=== PATIENT | female | born 1980 | race Hispanic/Latino ===

== ENCOUNTER 2019-05-27 14:35 | Emergency (ER) | payer OTHER ==
--- NOTE | 2019-05-27 16:09 | RAD REPORT ---
EXAM DESCRIPTION: RAD - Chest Pa And Lat (2 Views) - 05/27/2019 4:02 pm CLINICAL HISTORY: sore throat, cough Chest pain. COMPARISON: No comparisons FINDINGS: The lungs are clear. The heart is upper limit of normal in size. No displaced fractures. IMPRESSION: No acute or concerning finding suspected.
--- NOTE | 2019-05-27 16:14 | ER ---
Nurse's Notes [facility] Name: Zeinab Kim Age: 38 yrs Sex: Female : 1980 Arrival Date: 05/27/2019 Time: 14:40 Bed 24 Private MD: Diagnosis: Bronchitis, not specified as acute or chronic Presentation: 05/27 14:55 Presenting complaint: Patient states: Sore throat, productive cough, congestion, aj1 headache, and chest pain for the past 3 days. Denies fever. Transition of care: patient was not received from another setting of care. Onset of symptoms was May 2019. Risk Assessment: Do you want to hurt yourself or someone else? Patient reports no desire to harm self or others. Initial Sepsis Screen: Does the patient meet any 2 criteria? No. Patient's initial sepsis screen is negative. Does the patient have a suspected source of infection? Yes: Productive cough/pneumonia. Care prior to arrival: None. 14:55 Method Of Arrival: Ambulatory aj1 14:55 Acuity: RANDY 4 aj1 Triage Assessment: 14:58 General: Appears in no apparent distress. comfortable, Behavior is calm, cooperative, aj1 appropriate for age. Pain: Complains of pain in forehead, right gnosticist and left gnosticist. EENT: Reports nasal congestion nasal discharge sore throat. 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 - Coronavirus screen:: The patient has NOT traveled to [place], [place], or [place] in the past 14 days. - Social history:: Smoking status: Patient/guardian denies using tobacco. - Ebola Screening: : Patient denies travel to an Ebola-affected area in the 21 days before illness onset. Screenin:59 Abuse screen: Denies threats or abuse. Denies injuries from another. Nutritional aj1 screening: No deficits noted. Tuberculosis screening: No symptoms or risk factors identified. Assessment: 14:59 General: Appears in no apparent distress. comfortable, Behavior is calm, cooperative, aj1 appropriate for age. Pain: Complains of pain in left gnosticist and right gnosticist and forehead. Neuro: Level of Consciousness is awake, alert, obeys commands, Oriented to person, place, time, situation. Cardiovascular: Patient's skin is warm and dry. Respiratory: Reports cough that is productive, Airway is patent Respiratory effort is even, unlabored, Respiratory pattern is regular, symmetrical, Breath sounds are clear bilaterally. GI: No signs and/or symptoms were reported involving the gastrointestinal system. : No signs and/or symptoms were reported regarding the genitourinary system. EENT: Throat is reddened bilaterally Reports nasal congestion nasal discharge sore throat. Derm: No signs and/or symptoms reported regarding the dermatologic system. Skin is pink, warm \T\ dry. normal. Musculoskeletal: No signs and/or symptoms reported regarding the musculoskeletal system. Circulation, motion, and sensation intact. 17:09 Reassessment: Patient appears in no apparent distress at this time. Patient and/or sg family updated on plan of care and expected duration. Pain level reassessed. Patient is alert, oriented x 3, equal unlabored respirations, skin warm/dry/pink. Patient denies pain at this time. Patient states feeling better. Vital Signs: 14:58 BP 121 / 92; Pulse 91; Resp 18; Temp 98.6(O); Pulse Ox 99% on R/A; aj1 17:00 BP 122 / 80; Pulse 87; Resp 16; Temp 98.6; Pulse Ox 100% on R/A; sg ED Course: 14:40 Patient arrived in ED. es 14:55 Lanie Cox, SANDRA is Primary Nurse. aj1 14:55 [facility] Jurado [facility]C [facility] kb 14:55 Rolando Carter MD is Attending Physician. kb 14:56 Triage completed. aj1 14:58 Arm band placed on Patient placed in an exam room. aj1 14:59 Patient has correct armband on for positive identification. aj1 14:59 No provider procedures requiring assistance completed. aj1 15:17 Flu and/or RSV swab sent to lab. Strep swab sent to lab. jp3 16:02 Chest Pa And Lat (2 Views) In Process Unspecified. EDMS 17:05 Patient did not have IV access during this emergency room visit. sg Administered Medications: 16:30 Drug: AtroVENT Aerosol 0.5 mg Route: Inhalation; sg 16:50 Follow up: Response: No adverse reaction sg 16:31 Drug: Albuterol 2.5 mg Route: Inhalation; sg 16:50 Follow up: Response: No adverse reaction; Marked relief of symptoms sg Outcome: 16:14 Discharge ordered by . kb 17:05 Discharged to home ambulatory. sg 17:05 Condition: good 17:05 Discharge instructions given to patient, family, Instructed on discharge instructions, follow up and referral plans. medication usage, safety practices, Demonstrated understanding of instructions, follow-up care, medications, Prescriptions given X 1. 17:08 Patient left the ED. sg Signatures: Dispatcher [employer] Fadia Cotton, FILM VAULT SUPERVISOR-C FILM VAULT SUPERVISOR-Lanie Holland RN RN aj1 Severo Santana RN RN Shannon Benitez Jacob jp3
--- NOTE | 2019-05-27 16:14 | EDPHYS ---
Physician Documentation [facility] Name: Zeinab Kim Age: 38 yrs Sex: Female : 1980 Arrival Date: 05/27/2019 Time: 14:40 Bed 24 Private MD: ED Physician Rolando Crater HPI: 05/27 16:13 This 38 yrs old Female presents to ER via Ambulatory with complaints of Sore kb Throat, Cough, Chest Congestion. 16:13 The patient presents with sore throat. The patient describes throat pain as constant. kb Onset: The symptoms/episode began/occurred 3 day(s) ago. Severity of symptoms: At their worst the symptoms were moderate, in the emergency department the symptoms are unchanged. Modifying factors: The symptoms are alleviated by nothing, the symptoms are aggravated by swallowing, Patient's oral intake status: good Denies contact with similarly ill indivduals. Associated signs and symptoms: Pertinent positives: cough, fever, flu-like symptoms, Sore throat. The patient has not experienced similar symptoms in the past. The patient has not recently seen a physician. 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 - Coronavirus screen:: The patient has NOT traveled to [place], [place], or [place] in the past 14 days. - Social history:: Smoking status: Patient/guardian denies using tobacco. - Ebola Screening: : Patient denies travel to an Ebola-affected area in the 21 days before illness onset. ROS: 16:12 Cardiovascular: Negative for chest pain, palpitations, and edema, Abdomen/GI: Negative kb for abdominal pain, nausea, vomiting, diarrhea, and constipation, Back: Negative for injury and pain, MS/Extremity: Negative for injury and deformity, Skin: Negative for injury, rash, and discoloration, Neuro: Negative for headache, weakness, numbness, tingling, and seizure. 16:12 Constitutional: Positive for body aches, chills, fatigue, fever, malaise. 16:12 ENT: Positive for sore throat. 16:12 Respiratory: Positive for cough, Negative for dyspnea on exertion, hemoptysis, orthopnea, pleurisy, shortness of breath, sputum production, wheezing. Exam: 16:13 Constitutional: This is a well developed, well nourished patient who is awake, alert, kb and in no acute distress. Head/Face: Normocephalic, atraumatic. ENT: Nares patent. No nasal discharge, no septal abnormalities noted. Tympanic membranes are normal and external auditory canals are clear. Oropharynx with no redness, swelling, or masses, exudates, or evidence of obstruction, uvula midline. Mucous membranes moist. Neck: Trachea midline, no thyromegaly or masses palpated, and no cervical lymphadenopathy. Supple, full range of motion without nuchal rigidity, or vertebral point tenderness. No Meningismus. Chest/axilla: Normal chest wall appearance and motion. Nontender with no deformity. No lesions are appreciated. Cardiovascular: Regular rate and rhythm with a normal S1 and S2. No gallops, murmurs, or rubs. Normal PMI, no JVD. No pulse deficits. Respiratory: Lungs have equal breath sounds bilaterally, clear to auscultation and percussion. No rales, rhonchi or wheezes noted. No increased work of breathing, no retractions or nasal flaring. Abdomen/GI: Soft, non-tender, with normal bowel sounds. No distension or tympany. No guarding or rebound. No evidence of tenderness throughout. Skin: Warm, dry with normal turgor. Normal color with no rashes, no lesions, and no evidence of cellulitis. MS/ Extremity: Pulses equal, no cyanosis. Neurovascular intact. Full, normal range of motion. Neuro: Awake and alert, GCS 15, oriented to person, place, time, and situation. Cranial nerves II-XII grossly intact. Motor strength 5/5 in all extremities. Sensory grossly intact. Cerebellar exam normal. Normal gait. Vital Signs: 14:58 BP 121 / 92; Pulse 91; Resp 18; Temp 98.6(O); Pulse Ox 99% on R/A; aj1 17:00 BP 122 / 80; Pulse 87; Resp 16; Temp 98.6; Pulse Ox 100% on R/A; sg MDM: 14:56 Patient medically screened. kb 16:12 Data reviewed: vital signs, nurses notes. Data interpreted: Pulse oximetry: on room air kb is 99 %. Interpretation: normal. Counseling: I had a detailed discussion with the patient and/or guardian regarding: the historical points, exam findings, and any diagnostic results supporting the discharge/admit diagnosis, lab results, radiology results, the need for outpatient follow up, a family practitioner, to return to the emergency department if symptoms worsen or persist or if there are any questions or concerns that arise at home. 05/27 15:22 Order name: Influenza Screen (A ; Complete Time: 15:58 EDMS 05/27 15:22 Order name: Group A Streptococcus Rapid Sc EDDE 05/27 15:49 Order name: Throat Culture EDDE 05/27 15:24 Order name: Chest Pa And Lat (2 Views); Complete Time: 16:10 EDMS Administered Medications: 16:30 Drug: AtroVENT Aerosol 0.5 mg Route: Inhalation; 16:50 Follow up: Response: No adverse reaction sg 16:31 Drug: Albuterol 2.5 mg Route: Inhalation; sg 16:50 Follow up: Response: No adverse reaction; Marked relief of symptoms sg Disposition: 05/27/19 16:14 Discharged to Home. Impression: Bronchitis, not specified as acute or chronic. - Condition is Stable. - Discharge Instructions: Acute Bronchitis, [id number], Viral Respiratory Infection, [id number]. - Prescriptions for Albuterol Sulfate 90 mcg/actuation - inhale 1-2 puff by INHALATION route every 4-6 hours; 1 Inhaler. - Medication Reconciliation Form, Thank You Letter, Antibiotic Education, Prescription Opioid Use, Work release form form. - Follow up: Emergency Department; When: As needed; Reason: Worsening of condition. Follow up: Private Physician; When: 2 - 3 days; Reason: Recheck today's complaints, Continuance of care, Re-evaluation by your physician. Addendum: 05/28/2019 21:16 Co-signature as Attending Physician, Rolando Carter MD I agree with the assessment and k dr plan of care. Signatures: Dispatcher [employer] EDDE Fadia Jurado, DIRECTOR INTERNAL COMMUNICATIONS-C RIAZ-Lanie Holland RN RN aj1 Severo Santana RN RN sg Rittger, Kevin, MD MD kdr Corrections: (The following items were deleted from the chart) 05/27 16:15 16:02 Chest Pa And Lat (2 Views)+RAD.[id number].[email or web address] ordered. EDDE EDMS 17:08 16:14 05/27/2019 16:14 Discharged to Home. Impression: Bronchitis, not specified as sg acute or chronic. Condition is Stable. Forms are Medication Reconciliation Form, Thank You Letter, Antibiotic Education, Prescription Opioid Use. Follow up: Emergency Department; When: As needed; Reason: Worsening of condition. Follow up: Private Physician; When: 2 - 3 days; Reason: Recheck today's complaints, Continuance of care, Re-evaluation by your physician. kb
[2019-05-27] MEDS ORDERED: ALBUTEROL 2.5 MG/3 ML NEB SOL ONE (16:29)
[2019-05-27] MEDS ORDERED: IPRATROPIUM BROM 0.5MG/2.5ML ONE (16:30)
[2019-05-27 17:14] VITALS: BP 121/92; TEMP 98.6; O2SAT 99
== END 2019-05-27 17:08 | disposition home or self-care (01) ==
LOC: ER 14:35
DX: J40 Bronchitis, not specified as acute or chronic (principal)
CPT/HCPCS: 71046; 87070; 87081; 87804; 99284

== ENCOUNTER 2020-05-24 13:01 | Emergency (ER) | payer BC, SELFPAY ==
--- OUTSIDE RECORDS SUMMARY | 2020-05-24 13:10 | XMS REPORT | Continuity of Care Document ---
:1980 Author Organization [facility] t Address [address] [place] [address] Care Team Providers Name Role Phone Lab, Fam Pob I Attending Clinician Unavailable Problems This patient has no known problems. Allergies, Adverse Reactions, Alerts This patient has no known allergies or adverse reactions. Medications This patient has no known medications. Procedures This patient has no known procedures. Encounters Start End Encounter Admission Attending Care Care Encounter Source Date/Time Date/Time Type Type Clinicians Facility Department ID 2019-11-22 2019-11-22 Laboratory Lab, [facility] [id number] 16:55:21 17:15:[address] [facility] [id number] [place] [id number] [facility] [phone] [address] Results This patient has no known results.
[2020-05-24 13:54] LABS: Urine Blood NEGATIVE (NEG); Urine Glucose NEGATIVE (NEG); Urine Protein NEGATIVE (NEG); Urine pH 6.5 (5.0-7.0)
[2020-05-24 14:36] LABS: Absolute Lymphocytes (CBC) 1.6 K/uL (0.7-4.9); Basophils % 1.3 % (0-1.3); Hematocrit 37.3 % (36.0-45.0); Lymphocytes % 25.8 % (15.3-44.8); MPV 8.5 fL (7.6-11.3); RBC Red Blood Cell Count 4.29 M/uL (3.86-4.86)
[2020-05-24 14:49] LABS: BUN Blood Urea Nitrogen 21 mg/dL (7-18); Bicarbonate 27 mmol/L (21-32); Glucose Level 99 mg/dL (74-106); Magnesium 2.5 mg/dL (1.8-2.4); Potassium 4.1 mmol/L (3.5-5.1); Sodium Level 138 mmol/L (136-145); Troponin (Emerg Dept Use Only) < 0.02 ng/mL (0.0-0.045)
--- NOTE | 2020-05-24 15:03 | EDPHYS ---
Physician Documentation [facility] Name: Zeinab Kim Age: 39 yrs Sex: Female : 1980 Arrival Date: 05/24/2020 Time: 13:05 Bed 26 Private MD: ED Physician Jose Aquino HPI: 05/24 14:00 This 39 yrs old Female presents to ER via Ambulatory with complaints of cp General Weakness, Nausea. 14:00 general weakness, fatigue and nausea. Onset: The symptoms/episode began/occurred 1 cp week(s) ago. Severity of symptoms: in the emergency department the symptoms are unchanged despite home interventions. 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 - Social history:: Smoking status: Patient reports the use of cigarette tobacco products. ROS: 14:05 Constitutional: Positive for fatigue, Negative for body aches, fever, poor PO intake. cp 14:05 Eyes: Negative for injury, pain, redness, and discharge. cp 14:05 ENT: Negative for drainage from ear(s), ear pain, sore throat, difficulty swallowing, difficulty handling secretions. 14:05 Cardiovascular: Negative for chest pain, edema, palpitations. 14:05 Respiratory: Negative for cough, shortness of breath, wheezing. 14:05 Abdomen/GI: Positive for nausea, Negative for abdominal pain, vomiting, diarrhea, constipation, black/tarry stool, rectal bleeding. 14:05 : Negative for urinary symptoms, vaginal bleeding, vaginal discharge. 14:05 Skin: Negative for cellulitis, rash. 14:05 Neuro: Positive for weakness, Negative for altered mental status, headache, speech changes, syncope. 14:05 All other systems are negative. Exam: 14:10 Constitutional: The patient appears in no acute distress, alert, awake, cp non-diaphoretic, non-toxic, well developed, well nourished. 14:10 Head/Face: Normocephalic, atraumatic. cp 14:10 Eyes: Periorbital structures: appear normal, Conjunctiva: normal, no exudate, no injection, Sclera: no appreciated abnormality, Lids and lashes: appear normal, bilaterally. 14:10 ENT: External ear(s): are unremarkable, Nose: is normal, Mouth: Lips: moist, Oral mucosa: pink and intact, moist, Posterior pharynx: Airway: no evidence of obstruction, patent. 14:10 Neck: ROM/movement: is normal, is supple, without pain, no range of motions limitations. 14:10 Chest/axilla: Inspection: normal, Palpation: is normal, no crepitus, no tenderness. 14:10 Cardiovascular: Rate: normal, Rhythm: regular, Edema: is not appreciated, JVD: is not appreciated. 14:10 Respiratory: the patient does not display signs of respiratory distress, Respirations: normal, no use of accessory muscles, no retractions, labored breathing, is not present, Breath sounds: are clear throughout, no decreased breath sounds, no stridor, no wheezing. 14:10 Abdomen/GI: Inspection: abdomen appears normal, Palpation: abdomen is soft and non-tender, in all quadrants, rebound tenderness, is not appreciated, voluntary guarding, is not appreciated, involuntary guarding, is not appreciated. 14:10 Skin: no rash present. 14:10 Neuro: Orientation: to person, place \T\ time. Mentation: is normal, Cerebellar function: is grossly normal, Motor: moves all fours, strength is normal, Sensation: is normal. 14:35 ECG was reviewed by the Attending Physician. cp Vital Signs: 13:19 BP 117 / 87; Pulse 65; Resp 18 S; Temp 97.2(TE); Pulse Ox 99% on R/A; Weight 81.65 kg ca1 (R); Height 5 ft. 4 in. (162.56 cm) (R); Pain 0/10; 14:48 BP 100 / 74 RA Sitting (auto/reg); Pulse 67; Resp 15; Pulse Ox 98% on R/A; dh4 14:48 BP 106 / 76 RA Standing (auto/lg); Pulse 69; Resp 14; Pulse Ox 98% on R/A; dh4 14:48 BP 94 / 65 RA Supine (auto/reg); Pulse 58; Resp 19; Pulse Ox 98% on R/A; dh4 13:19 Body Mass Index 30.90 (81.65 kg, 162.56 cm) ca1 MDM: 13:46 Patient medically screened. cp 14:00 Differential Diagnosis anemia, , cardiac arrythmia, electrolyte abnormality. cp 15:00 Data reviewed: vital signs, nurses notes, lab test result(s), EKG. cp 15:00 Counseling: I had a detailed discussion with the patient and/or guardian regarding: the cp historical points, exam findings, and any diagnostic results supporting the discharge/admit diagnosis, lab results, the need for outpatient follow up, a family practitioner, to return to the emergency department if symptoms worsen or persist or if there are any questions or concerns that arise at home. ED course: VSS. Will discharge to home for continued monitoring. 05/24 13:35 Order name: Urine Dipstick--Ancillary (enter results) eb 05/24 13:35 Order name: Urine --Ancillary (enter results) 05/24 13:52 Order name: Basic Metabolic Panel 05/24 13:52 Order name: CBC with Diff 05/24 13:52 Order name: Magnesium 05/24 13:52 Order name: Troponin (emerg Dept Use Only) 05/24 13:35 Order name: Urine Dipstick-Ancillary (obtain specimen); Complete Time: 13:36 ca1 05/24 13:52 Order name: EKG; Complete Time: 13:53 cp 05/24 13:55 Order name: Urine --Ancillary; Complete Time: 14:32 EDMS 05/24 13:55 Order name: Urine Dipstick-Ancillary; Complete Time: 14:32 EDMS 05/24 14:32 Interpretation: Normal except: UESTR TRACE. cp 05/24 14:38 Order name: CBC with Automated Diff; Complete Time: 14:53 EDMS 05/24 14:53 Interpretation: Normal except: RDW 16.2; MN% 12.7. cp 05/24 14:49 Order name: Basic Metabolic Panel; Complete Time: 14:53 EDMS 05/24 14:53 Interpretation: Normal except: CL 108; BUN 21; GFR 61; CA 10.5. cp 05/24 14:49 Order name: Troponin (Emerg Dept Use Only); Complete Time: 14:53 EDMS 05/24 14:49 Order name: Magnesium; Complete Time: 14:53 EDMS 05/24 14:53 Interpretation: Abnormal: MG 2.5. cp 05/24 13:35 Order name: Urine Test (obtain specimen); Complete Time: 13:35 ca1 05/24 13:52 Order name: Cardiac monitoring; Complete Time: 14:19 cp 05/24 13:52 Order name: EKG - Nurse/Tech; Complete Time: 14:38 cp 05/24 13:52 Order name: IV Saline Lock; Complete Time: 14:19 cp 05/24 13:52 Order name: Labs collected and sent; Complete Time: 14:19 cp 05/24 13:52 Order name: O2 Per Protocol; Complete Time: 14:19 cp 05/24 13:52 Order name: O2 Sat Monitoring; Complete Time: 14:20 cp 05/24 13:52 Order name: Orthostatics; Complete Time: 14:51 cp EC:35 Rate is 57 beats/min. Rhythm is regular. WA interval is normal. QRS interval is normal. cp QT interval is normal. Interpreted by me. Reviewed by me. Administered Medications: No medications were administered Disposition: 05/24/20 15:03 Discharged to Home. Impression: Weakness, Nausea. - Condition is Stable. - Discharge Instructions: Nausea, Adult, Weakness, Fatigue. - Prescriptions for Zofran 4 mg Oral Tablet - take 1 tablet by ORAL route every 12 hours As needed; 20 tablet. - Medication Reconciliation Form, Thank You Letter, Antibiotic Education, Prescription Opioid Use, Work release form form. - Follow up: Private Physician; When: 2 - 3 days; Reason: Recheck today's complaints. - Problem is new. - Symptoms have improved. Addendum: 05/27/2020 06:24 Co-signature as Attending Physician, Jose Aquino MD I agree with the assessment and t w4 plan of care. Signatures: Dispatcher [employer] EDMS Alejandro Estes PA PA cp Wadley, Terrence, MD MD tw4 Kriss Zamudio RN RN ca1 Corrections: (The following items were deleted from the chart) 05/24 14:53 14:53 Normal except: CL 108; BUN 21; GFR 61. cp cp 16:22 15:03 05/24/2020 15:03 Discharged to Home. Impression: Weakness; Nausea. Condition is ca1 Stable. Forms are Medication Reconciliation Form, Thank You Letter, Antibiotic Education, Prescription Opioid Use. Follow up: Private Physician; When: 2 - 3 days; Reason: Recheck today's complaints. Problem is new. Symptoms have improved. cp
--- NOTE | 2020-05-24 15:03 | ER ---
Nurse's Notes [facility] Name: Zeinab Kim Age: 39 yrs Sex: Female : 1980 Arrival Date: 05/24/2020 Time: 13:05 Bed 26 Private MD: Diagnosis: Weakness;Nausea Presentation: 05/24 13:19 Chief complaint: Patient states: Fatigue and nausea x 1 week. Denies fever. Coronavirus ca1 screen: Client denies travel out of the [place] in the last 14 days. fatigue, nausea, Client presents with at least one sign or symptom that may indicate coronavirus-19. Standard/surgical mask placed on the client. Provider contacted for isolation considerations. Ebola Screen: Patient negative for fever greater than or equal to 101.5 degrees Fahrenheit, and additional compatible Ebola Virus Disease symptoms Patient denies exposure to infectious person. Patient denies travel to an Ebola-affected area in the 21 days before illness onset. No symptoms or risks identified at this time. Initial Sepsis Screen: Does the patient meet any 2 criteria? No. Patient's initial sepsis screen is negative. Does the patient have a suspected source of infection? No. Patient's initial sepsis screen is negative. Risk Assessment: Do you want to hurt yourself or someone else? Patient reports no desire to harm self or others. Onset of symptoms was May 24, 2020. 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 - Social history:: Smoking status: Patient reports the use of cigarette tobacco products. Screenin:21 Abuse screen: Denies threats or abuse. Denies injuries from another. Nutritional ca1 screening: No deficits noted. Tuberculosis screening: No symptoms or risk factors identified. Fall Risk None identified. Assessment: 14:00 General: Appears in no apparent distress. uncomfortable, Behavior is calm, cooperative, ca1 appropriate for age, Reports fatigue for 2-3 days. Pain: Denies pain. Neuro: No deficits noted. Cardiovascular: No deficits noted. Respiratory: No deficits noted. GI: Abdomen is round non-distended, Reports nausea, Patient currently denies vomiting. : No deficits noted. EENT: No deficits noted. Derm: No deficits noted. Musculoskeletal: No signs and/or symptoms reported regarding the musculoskeletal system. Circulation, motion, and sensation intact. Capillary refill < 3 seconds, in bilateral fingers. Range of motion: intact in all extremities. 15:00 Reassessment: Patient appears in no apparent distress at this time. Patient and/or ca1 family updated on plan of care and expected duration. Pain level reassessed. Patient is alert, oriented x 3, equal unlabored respirations, skin warm/dry/pink. no c/o of pain. Reassessment: Patient appears in no apparent distress at this time. Patient and/or family updated on plan of care and expected duration. Pain level reassessed. Patient is alert, oriented x 3, equal unlabored respirations, skin warm/dry/pink. patient states she ready to go no c/o pain. Vital Signs: 13:19 BP 117 / 87; Pulse 65; Resp 18 S; Temp 97.2(TE); Pulse Ox 99% on R/A; Weight 81.65 kg ca1 (R); Height 5 ft. 4 in. (162.56 cm) (R); Pain 0/10; 14:48 BP 100 / 74 RA Sitting (auto/reg); Pulse 67; Resp 15; Pulse Ox 98% on R/A; dh4 14:48 BP 106 / 76 RA Standing (auto/lg); Pulse 69; Resp 14; Pulse Ox 98% on R/A; dh4 14:48 BP 94 / 65 RA Supine (auto/reg); Pulse 58; Resp 19; Pulse Ox 98% on R/A; dh4 13:19 Body Mass Index 30.90 (81.65 kg, 162.56 cm) ca1 ED Course: 13:05 Patient arrived in ED. am4 13:20 Triage completed. ca1 13:21 Arm band placed on right wrist. ca1 13:41 Alejandro Estes PA is PHCP. cp 13:41 Jose Aquino MD is Attending Physician. cp 13:45 Macy Salgado, SANDRA is Primary Nurse. zb 13:47 Urine --Ancillary (enter results) Sent. mh5 13:47 Urine Dipstick--Ancillary (enter results) Sent. [facility] 15:00 Inserted saline lock: 20 gauge in right antecubital area, using aseptic technique. ca1 16:21 No provider procedures requiring assistance completed. ca1 16:22 Patient has correct armband on for positive identification. prefinish operator on. Pulse ca1 ox on. NIBP on. 16:22 IV discontinued, intact, bleeding controlled, No redness/swelling at site. Pressure ca1 dressing applied. Administered Medications: No medications were administered Outcome: 15:03 Discharge ordered by . cornelio 16:21 Discharged to home ambulatory. ca1 16:21 Condition: stable 16:21 Discharge instructions given to patient, Instructed on discharge instructions, follow up and referral plans. medication usage, Demonstrated understanding of instructions, follow-up care, medications, Prescriptions given X 1. 16:22 Patient left the ED. ca1 Signatures: Alejandro Estes PA PA cp Martinez, Maria 5 Kriss Zamudio RN RN Randy Carbajal4 Macy Salgado RN RN zb Martinez, Ashley [facility]
[2020-05-24 16:26] VITALS: TEMP 97.2
[2020-05-24 16:28] VITALS: BP 94/65; O2SAT 98
== END 2020-05-24 16:22 | disposition home or self-care (01) ==
LOC: ER 13:01
DX: R11.0 Nausea (principal); Z72.0 Tobacco use
CPT/HCPCS: 36415; 80048; 81003; 81025; 83735; 84484; 85025; 93005; 99284

== ENCOUNTER 2020-09-06 16:49 | Emergency (ER) | payer SELFPAY ==
--- OUTSIDE RECORDS SUMMARY | 2020-09-06 16:52 | XMS REPORT | Continuity of Care Document ---
:1980 Author Organization [facility] t Address [address] [place] [address] Care Team Providers Name Role Phone Lizandro Bardales DO Attending Clinician Chikis Rod DO Attending Clinician Lab, [facility] Pob I Attending Clinician Unavailable Problems This patient has no known problems. Allergies, Adverse Reactions, Alerts This patient has no known allergies or adverse reactions. Medications This patient has no known medications. Procedures This patient has no known procedures. Encounters Start End Encounter Admission Attending Care Care Encounter Source Date/Time Date/Time Type Type Clinicians Facility Department ID 2020-07-18 2020-07-18 Patient Jeffy PRE[facility] [id number] 00:00:00 00:00:00 Outreach [facility] [id number] Lizandro [facility] [id number] [place] [id number] 2020-06-20 2020-06-20 Emergency Marcel PRE[facility] [id number] 14:51:00 18:34:00 Inga Henderson [id number] [place] [id number] [place] [id number] 2019-11-22 2019-11-22 Laboratory Lab, [facility] [id number] 16:55:21 17:15:21 Only Fam [facility] [id number] [place] [id number] [place] [phone] [place] [address] One Results This patient has no known results.
--- NOTE | 2020-09-06 17:28 | RAD REPORT ---
EXAM DESCRIPTION: CT - CTHCSPWOC - 09/06/2020 5:18 pm CLINICAL HISTORY: Trauma, head and neck injury. fall COMPARISON: No comparisons TECHNIQUE: Axial 5 mm thick images of the head were obtained. Axial 2 mm thick images of the cervical spine were obtained with sagittal and coronal reconstruction images generated and reviewed. All CT scans are performed using dose optimization technique as appropriate and may include automated exposure control or mA/KV adjustment according to patient size. FINDINGS: CT HEAD WITHOUT CONTRAST: No acute hemorrhage, hydrocephalus or extra-axial collection is identified.No areas of brain edema or midline shift. The paranasal sinuses and mastoids are clear.The calvarium is intact. CT CERVICAL SPINE WITHOUT CONTRAST: No fracture or subluxation.Cervical degenerative changes.No prevertebral soft tissues swelling is fatuma ntified. IMPRESSION: No acute intracranial or cervical spine findings.
--- NOTE | 2020-09-06 18:01 | RAD REPORT ---
EXAM DESCRIPTION: RAD - Shoulder Right 2 View - 09/06/2020 5:42 pm CLINICAL HISTORY: fall Trauma, fall COMPARISON: No comparisons FINDINGS: Nondisplaced fracture of the greater tuberosity of the humeral head. No dislocation.
--- NOTE | 2020-09-06 18:02 | RAD REPORT ---
EXAM DESCRIPTION: RAD - Elbow Right 3 View - 09/06/2020 5:44 pm CLINICAL HISTORY: fall COMPARISON: No comparisons FINDINGS: No fracture or dislocation.
--- NOTE | 2020-09-06 18:03 | RAD REPORT ---
EXAM DESCRIPTION: RAD - Knee Left 3 View - 09/06/2020 5:42 pm CLINICAL HISTORY: fall COMPARISON: No comparisons FINDINGS: Equivocal fracture involving the inferior pole of the patella. Moderate joint effusion.
--- NOTE | 2020-09-06 20:41 | EDPHYS ---
Physician Documentation [facility] Name: Zeinab Kim Age: 39 yrs Sex: Female : 1980 Arrival Date: 09/06/2020 Time: 16:54 Bed 15 Private MD: ED Physician Rizwan Samayoa HPI: 09/06 20:35 This 39 yrs old Female presents to ER via Wheelchair with complaints of Fall jmm Injury. 20:35 Details of fall: The patient fell from a height, from an upright position. Onset: The jmm symptoms/episode began/occurred acutely, just prior to arrival. Associated injuries: The patient sustained injury to the head, neck injury. right arm, right knee. Patient states the rail fell on a stairway and fell on her right side along the height of about 7 steps. Denies LOC. 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 - Social history:: Smoking status: Patient denies any tobacco usage or history of. ROS: 20:35 Constitutional: Negative for fever, chills, and weight loss, Cardiovascular: Negative jmm for chest pain, palpitations, and edema, Respiratory: Negative for shortness of breath, cough, wheezing, and pleuritic chest pain. 20:35 MS/extremity: Positive for injury or acute deformity. 20:35 Neuro: Positive for headache. 20:35 All other systems are negative. Exam: 20:35 Constitutional: This is a well developed, well nourished patient who is awake, alert, jmm and in no acute distress. Head/Face: atraumatic. Eyes: EOMI, no conjunctival erythema appreciated ENT: Moist Mucus Membranes Neck: Trachea midline, Supple Chest/axilla: Normal chest wall appearance and motion. Cardiovascular: Regular rate and rhythm. No edema appreciated Respiratory: Normal respirations, no respiratory distress appreciated Abdomen/GI: Non distended, soft Back: Normal ROM Skin: General appearance color normal 20:35 Musculoskeletal/extremity: painful rom noted to the right shoulder, full radial pulse, full legal executive assistant strength, compartments are soft, nvi. right anterior knee ttp, from appreciated, painful, compartments are soft, NVI. 20:35 Skin: Appearance: Color: normal in color. 20:35 Neuro: Orientation: is normal, Mentation: is normal, Memory: is normal. 20:35 Psych: Behavior/mood is pleasant, cooperative. Vital Signs: 16:58 BP 100 / 66; Pulse 74; Resp 20; Temp 98.7; Pulse Ox 100% ; Weight 79.38 kg; Height 5 sv ft. 4 in. (162.56 cm); 21:00 BP 105 / 68; Pulse 72; Resp 18; Pulse Ox 99% on R/A; wh 16:58 Body Mass Index 30.04 (79.38 kg, 162.56 cm) sv MDM: 20:32 Patient medically screened. [facility] 20:39 Data reviewed: vital signs, nurses notes. Counseling: I had a detailed discussion with mela the patient and/or guardian regarding: the historical points, exam findings, and any diagnostic results supporting the discharge/admit diagnosis, radiology results, the need for outpatient follow up, to return to the emergency department if symptoms worsen or persist or if there are any questions or concerns that arise at home. ED course: Patient advised to follow up with pcp and otherwise given strict return precautions. Patient understood and agrees with the plan of care. . 09/06 17:05 Order name: Elbow Right 3 View XRAY; Complete Time: 20:14 09/06 17:05 Order name: Shoulder Right (2 View) XRAY; Complete Time: 20:14 09/06 17:05 Order name: Knee Left 3 View XRAY; Complete Time: 20:14 sv 09/06 17:14 Order name: Head C Spine Mpr Wo Con; Complete Time: 20:14 EDMS 09/06 20:21 Order name: Sling; Complete Time: 20:36 [facility] 09/06 20:21 Order name: Knee Immobilizer; Complete Time: 20:36 [facility] Administered Medications: 20:36 Drug: [place] (HYDROcodone-acetaminophen) 10 mg-325 mg 1 tabs Route: PO; 21:21 Follow up: Response: No adverse reaction; Pain is decreased; RASS: Alert and Calm (0) Disposition: 09/07 05:48 Co-signature as Attending Physician, Rizwan Samayoa MD. [email or web address] Disposition: 09/06/20 20:41 Discharged to Home. Impression: Nondisplaced Humeral Head Fracture, Right Patellar Fracture, non displaced, Unspecified injury of head, Strain of muscle, fascia and tendon at neck level. - Condition is Stable. - Discharge Instructions: Head Injury, Adult, Patellar Fracture, Adult, Humerus Fracture Treated With Immobilization, [id number], Cervical Sprain. - Prescriptions for Tylenol- Codeine #3 300-30 mg Oral Tablet - take 1 tablet by ORAL route every 4-6 hours As needed; 20 tablet. Valium 5 mg Oral Tablet - take 1 tablet by ORAL route every 8 hours As needed; 20 tablet. - Medication Reconciliation Form, Thank You Letter, Antibiotic Education, Prescription Opioid Use, Work release form form. - Follow up: Mirza Wagner MD; When: 2 - 3 days; Reason: Recheck today's complaints, Continuance of care, Re-evaluation by your physician. Signatures: Dispatcher [employer] EDMelissa Grullon, RN RN Antonio Portillo PA PA jmm Habalo, Winsy, RN RN Rizwan Samayoa MD MD [email or web address] Corrections: (The following items were deleted from the chart) 09/06 17:14 17:05 Head Brain Wo Cont+CT.RAD.BRZ ordered. [facility] EDMS 21:22 20:41 09/06/2020 20:41 Discharged to Home. Impression: Nondisplaced Humeral Head wh Fracture; Right Patellar Fracture, non displaced; Unspecified injury of head; Strain of muscle, fascia and tendon at neck level. Condition is Stable. Forms are Medication Reconciliation Form, Thank You Letter, Antibiotic Education, Prescription Opioid Use. Follow up: Mirza Wagner; When: 2 - 3 days; Reason: Recheck today's complaints, Continuance of care, Re-evaluation by your physician. [facility]
--- NOTE | 2020-09-06 20:41 | ER ---
Nurse's Notes [facility] Name: Zeinab Kim Age: 39 yrs Sex: Female : 1980 Arrival Date: 09/06/2020 Time: 16:54 Bed 15 Private MD: Diagnosis: Nondisplaced Humeral Head Fracture;Right Patellar Fracture, non displaced;Unspecified injury of head;Strain of muscle, fascia and tendon at neck level Presentation: 09/06 16:56 Chief complaint: Patient states: s/p fall today and fell off of about 10 steps d/t sv railing fell over and she fell onto tile [place] hitting the right back part of head, c/o left knee and right arm pain. Denies LOC but reports dizziness. Care prior to arrival: None. Mechanism of Injury: Fall down 10 steps. Trauma event details: Injury occurred in the [facility], Injury occurred: at home. Injury occurred: September 06, 2020. 16:56 Acuity: RANDY 3 sv 16:56 Method Of Arrival: Wheelchair sv 16:58 Coronavirus screen: Client denies travel out of the [place] in the last 14 days. At this sv time, the client does not indicate any symptoms associated with coronavirus-19. Ebola Screen: No symptoms or risks identified at this time. Risk Assessment: Do you want to hurt yourself or someone else? Patient reports no desire to harm self or others. Onset of symptoms was September 06, 2020. 16:58 Initial Sepsis Screen: Does the patient meet any 2 criteria? No. Patient's initial sv sepsis screen is negative. Does the patient have a suspected source of infection? No. Patient's initial sepsis screen is negative. 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 - Social history:: Smoking status: Patient denies any tobacco usage or history of. Screenin:30 Abuse screen: Denies threats or abuse. Denies injuries from another. Nutritional wh screening: No deficits noted. Tuberculosis screening: No symptoms or risk factors identified. Fall Risk None identified. Assessment: 17:05 Reassessment: Received VO from Dr Roy for CT head and xrays. sv 20:30 General: Appears in no apparent distress. Behavior is calm, cooperative, appropriate wh for age. Pain: Complains of pain in right shoulder and left knee Pain currently is 5 out of 10 on a pain scale. Neuro: Level of Consciousness is awake, alert, obeys commands, Oriented to person, place, time, situation, Appropriate for age. Cardiovascular: Capillary refill < 3 seconds. Respiratory: Airway is patent Respiratory effort is even, unlabored, Respiratory pattern is regular, symmetrical. GI: Abdomen is flat, non-distended. : No signs and/or symptoms were reported regarding the genitourinary system. EENT: No signs and/or symptoms were reported regarding the EENT system. Derm: Skin is intact, is healthy with good turgor, Skin is pink, warm \T\ dry. Musculoskeletal: Circulation, motion, and sensation intact. Vital Signs: 16:58 BP 100 / 66; Pulse 74; Resp 20; Temp 98.7; Pulse Ox 100% ; Weight 79.38 kg; Height 5 sv ft. 4 in. (162.56 cm); 21:00 BP 105 / 68; Pulse 72; Resp 18; Pulse Ox 99% on R/A; wh 16:58 Body Mass Index 30.04 (79.38 kg, 162.56 cm) sv ED Course: 16:54 Patient arrived in ED. mr 16:58 Triage completed. sv 16:58 Arm band placed on. sv 17:18 Head C Spine Mpr Wo Con In Process Unspecified. EDMS 17:42 Elbow Right 3 View XRAY In Process Unspecified. EDMS 17:42 Shoulder Right (2 View) XRAY In Process Unspecified. EDMS 17:42 Knee Left 3 View XRAY In Process Unspecified. EDMS 20:16 Antonio Ho PA is PHCP. m 20:16 Rizwan Samayoa MD is Attending Physician. m 20:30 Patient has correct armband on for positive identification. Bed in low position. Call wh light in reach. Side rails up X 1. Pulse ox on. NIBP on. 20:36 Raymond Becker, RN is Primary Nurse. 20:40 Mirza Wagner MD is Referral Physician. [facility] 21:15 Shoulder immobilizer applied on right shoulder. Knee immobilizer applied on left knee. 21:19 No provider procedures requiring assistance completed. Patient did not have IV access during this emergency room visit. Administered Medications: 20:36 Drug: [place] (HYDROcodone-acetaminophen) 10 mg-325 mg 1 tabs Route: PO; 21:21 Follow up: Response: No adverse reaction; Pain is decreased; RASS: Alert and Calm (0) Outcome: 20:41 Discharge ordered by MD. [facility] 21:20 Discharged to home via wheelchair, with friend. 21:20 Condition: stable 21:20 Discharge instructions given to patient, Instructed on discharge instructions, follow up and referral plans. no drinking with medication, no driving heavy equipment, medication usage, POC Demonstrated understanding of instructions, follow-up care, medications, POC Prescriptions given X 2. 21:22 Patient left the ED. Signatures: Dispatcher [employer] EDMS Melissa Eisenberg RN RN Antonio Ho PA PA jmm Rivera, Mary mr Raymond Becker, RN RN Corrections: (The following items were deleted from the chart) 17:03 16:58 79.38 kg; Height 5 ft. 4 in.; BMI: 30.0; sv 21:24 20:30 Pain: Complains of pain in right knee Pain currently is 5 out of 10 on a pain scale. 21:24 20:30 GI: Abdomen is round non-distended, [facility]
[2020-09-06] MEDS ORDERED: HYDROCODONE/APAP 10/325 TAB ONE (20:47)
[2020-09-06 21:38] VITALS: BP 100/66; TEMP 98.7; O2SAT 100
== END 2020-09-06 21:22 | disposition home or self-care (01) ==
LOC: ER 16:49
DX: S42.301A Unspecified fracture of shaft of humerus, right arm, initial encounter for closed fracture (principal); S82.001A Unspecified fracture of right patella, initial encounter for closed fracture; S16.1XXA Strain of muscle, fascia and tendon at neck level, initial encounter; W10.9XXA Fall (on) (from) unspecified stairs and steps, initial encounter; Y93.89 Activity, other specified
CPT/HCPCS: 70450; 72125; 99284